=== PATIENT | female | born 1990 | race Caucasian/White ===

== ENCOUNTER 2020-02-09 15:33 | Emergency (ER) | payer MEDICAID, OTHER ==
[~2020-02-09] VITALS: Ht 172.7 cm; Wt 172.4 kg
[2020-02-09 15:49] VITALS: BP 173/79
[2020-02-09] MEDS ORDERED: ACETAMINOPHEN 500 MG TAB PO ONE (16:15)
[2020-02-09] MEDS ORDERED: cefTRIAXone SOD 1,000 MG VL IM ONE ×2 (16:15→16:45)
== END 2020-02-09 18:37 | disposition home or self-care (01) ==
LOC: ER 15:33 → EDBD 15:33 → ER 18:37
DX: U07.1 COVID-19 (principal); R91.8 Other nonspecific abnormal finding of lung field; J03.90 Acute tonsillitis, unspecified; N39.0 Urinary tract infection, site not specified
CPT/HCPCS: 36415; 71045; 81002; 81025; 87426; 96372; 99284; J0696